=== PATIENT | female | born 1955 | race Caucasian/White ===

== ENCOUNTER 2018-11-05 06:35 | Day surgery (SDC) | payer OTHER ==
[~2018-11-05] VITALS: Ht 165.1 cm; Wt 84.6 kg
[~2018-11-05 06:35] MED LIST: CETIRIZINE PO; NEXIUM PO; NITR100C PO; THYROID MED PO
[2018-11-05] MEDS ORDERED: LACTATED RINGERS 1,000 ML IV SCH (06:51)
[2018-11-05] MEDS ORDERED: NEOMY/POLYMYXIN B GU IRR. 1 ML ONE (06:58)
[2018-11-05] MEDS ORDERED: BUPIVACAINE/PF 0.25% ONE (06:58)
[2018-11-05] MEDS ORDERED: EPINEPHRINE 1 MG/ML, 1ML ONE (06:58)
[2018-11-05] MEDS ORDERED: THROMBIN 5,000 UNIT VIAL TP ONE (07:00)
[2018-11-05 07:05] VITALS: BP 125/89
[2018-11-05] MEDS ORDERED: ONDANSETRON 2MG/ML, 2ML ONE (08:04)
[2018-11-05] MEDS ORDERED: PROPOFOL 10 MG/ML, 50ML ONE (08:04)
[2018-11-05] MEDS ORDERED: MIDAZOLAM 1 MG/ML, 2ML ONE (08:04)
[2018-11-05] MEDS ORDERED: CEFAZOLIN 1,000 MG ONE (08:04)
[2018-11-05] MEDS ORDERED: SCOPOLAMINE PATCH, 1.5MG PATCH.TD72 TD ONE (08:04)
[2018-11-05] MEDS ORDERED: FENTANYL PF 250 MCG/5ML ONE (08:04)
[2018-11-05] MEDS ORDERED: DEXAMETHASONE 4 MG/ML, 1ML ONE (08:04)
[2018-11-05] MEDS ORDERED: PROPOFOL 10 MG/ML, 20ML ONE (08:04)
[2018-11-05] MEDS ORDERED: ACETAMINOPHEN 325 MG TABLET PO PRN (08:30)
[2018-11-05] MEDS ORDERED: FENTANYL PF 100 MCG/2ML IV PRN (08:30)
[2018-11-05] MEDS ORDERED: OXYcodone 5 MG/5 ML ORAL.SOL UDC PO PRN (08:30)
[2018-11-05] MEDS ORDERED: DIAZEPAM 5 MG/ML, 2ML IVPush PRN (08:30)
[2018-11-05] MEDS ORDERED: PROMETHAZINE 25 MG/ML, 1ML IV PRN (08:30)
[2018-11-05] MEDS ORDERED: HYDROmorphone 2 MG/ML, 1ML IVPush PRN (08:30)
[2018-11-05] MEDS ORDERED: MEPERIDINE/PF 25MG/0.5ML IVPush PRN (08:30)
[2018-11-05] MEDS ORDERED: KETOROLAC 30 MG/1 ML IV PRN (08:30)
[2018-11-05] MEDS ORDERED: hydrALAzine 20 MG/ML, 1ML IV PRN (08:30)
[2018-11-05] MEDS ORDERED: ALBUTEROL SULFATE 2.5 MG/3 ML NPPB PRN (08:30)
[2018-11-05] MEDS ORDERED: LABETALOL 5MG/ML, 20ML IV PRN (08:30)
[2018-11-05] MEDS ORDERED: BUPIVACAINE/PF-EPI 0.25% 1:200K INFIL ONE (08:36)
[2018-11-05] MEDS ORDERED: OXYcodone 5 MG/5 ML ORAL.SOL UDC ONE (09:16)
[2018-11-05] MEDS ORDERED: KETOROLAC 30 MG/1 ML ONE (09:33)
[2018-11-05] MEDS ORDERED: MEPERIDINE/PF 25MG/ML,1ML ONE (09:34)
== END 2018-11-05 12:05 | disposition home or self-care (01) ==
LOC: OUT 06:35
PROVIDERS: ATTEND Urology
DX: N39.3 Stress incontinence (female) (male) (principal); K21.9 Gastro-esophageal reflux disease without esophagitis; E03.9 Hypothyroidism, unspecified; Z72.89 Other problems related to lifestyle; Z87.891 Personal history of nicotine dependence; Z88.8 Allergy status to other drugs, medicaments and biological substances; Z87.39 Personal history of other diseases of the musculoskeletal system and connective tissue; Z98.890 Other specified postprocedural states; Z96.652 Presence of left artificial knee joint
CPT/HCPCS: 57288; 93005; C1771; J0171; J0690; J1100; J1885; J2175; J2250; J2405; J2704; J3010; J3490; J7120